=== PATIENT | male | born 1945 | race Caucasian/White ===

== ENCOUNTER 2017-11-03 18:57 | Emergency (ER) | payer BC, OTHER ==
[~2017-11-03] VITALS: Ht 180.3 cm; Wt 89.8 kg
[2017-11-03 19:07] VITALS: BP_SYST 132
[2017-11-03 19:39] LABS: BILIRUBIN,URINE NEGATIVE (NEGATIVE); BLOOD, URINE 3+ (NEGATIVE); CLARITY/URINE HAZY (CLEAR); COLOR,URINE YELLOW (YELLOW); GLUCOSE,URINE NEGATIVE (NEGATIVE); KETONES,URINE NEGATIVE (NEGATIVE); LEUKOCYTE ESTERASE ,URINE TRACE (NEGATIVE); NITRITE, URINE NEGATIVE (NEGATIVE); PROTEIN URINE 1+ (NEGATIVE); UROBILINOGEN,URINE 0.2 (0.2-1.0)
[2017-11-03 19:53] LABS: BACTERIA,URINE FEW /HPF (None Seen); MUCUS,URINE 1+ /LPF (None Seen); RBC,URINE >100 /HPF (0-3)
--- NOTE | 2017-11-03 20:00 | NUR ---
Patient to ER bed to gown for evaluation. Side rails up.
--- NOTE | 2017-11-03 20:20 | NUR ---
Patient to ER via triage for evaluation for burning when urine enters catheter tube. Patient denies pain or blood in urine. Per patient, mccabe was placed 2 days ago. Patient is awake, alert and oriented in no acute distress, vital signs stable, respirations even and unlabored, skin warm and dry to touch. Awaiting evaluation by ER MD, will continue to observe and assess.
[2017-11-03] MEDS ORDERED: NACL 0.9% 1,000 ML IV ONE (21:30)
[2017-11-03] MEDS ORDERED: cefTRIAXone 1 GM IVPB PREMIX 50 ML IV ONE (21:30)
--- NOTE | 2017-11-03 21:35 | NUR ---
Dr Rose at bedside to evaluate patient.
--- NOTE | 2017-11-03 22:00 | NUR ---
Urinary Catheter dc'd per Dr Rose's order, patient tolerated procedure well.
[2017-11-03 22:22] LABS: BASOPHILS % (AUTO) 0.3 % (0.0-2.0); EOSINOPHILS # (AUTO) 0.2 K/uL (0.0-0.4); EOSINOPHILS % (AUTO) 3.3 % (0.0-4.0); HEMATOCRIT 39.2 % (36-54); HEMOGLOBIN 12.5 g/dL (14.0-18.0); LYMPHOCYTES # (AUTO) 1.6 K/uL (1.0-5.5); LYMPHOCYTES % (AUTO) 21.9 % (20.5-51.5); MEAN CORPUSCULAR HEMOGLOBIN 29 pg (27-31); MEAN CORPUSCULAR HGB CONC 32 % (32-36); MEAN CORPUSCULAR VOLUME 90 fL (79.0-98.0); MONOCYTES # (AUTO) 0.8 K/uL (0.0-1.0); MONOCYTES % (AUTO) 11.5 % (1.7-9.3); NEUTROPHILS # (AUTO) 4.6 K/uL (1.8-7.7); PLATELET COUNT (AUTO) 223 K/uL (130-430); RED BLOOD CELL COUNT(AUTO) 4.33 MIL/uL (4.2-6.2); RED CELL DISTRIBUTION WIDTH 13.3 % (9.0-15.0); WHITE BLOOD COUNT (AUTO) 7.2 K/uL (4.8-10.8)
[2017-11-03 22:26] LABS: CALCIUM 9.4 mg/dL (8.4-11.0); CREATININE 1.29 mg/dL (0.55-1.30); POTASSIUM 3.5 mmol/L (3.5-5.1)
[2017-11-03 22:31] LABS: ALBUMIN 3.7 g/dL (3.4-4.8); TOTAL BILIRUBIN 0.4 mg/dL (0.0-1.0)
--- NOTE | 2017-11-03 23:00 | NUR ---
Patient resting quietly in no acute distress. Family remains at bedside.
--- NOTE | 2017-11-04 | NUR ---
Patient resting quietly in no acute distress, respirations even and unlabored, skin warm and dry to touch. IV fluids complete. Patient has been able to void a total of 400 ml of urine, Dr Rose notified.
[2017-11-04 00:10] VITALS: BP_SYST 128
--- NOTE | 2017-11-04 00:10 | NUR ---
Patient given written and verbal discharge instructions and verbalizes understanding. ER MD discussed with patient the results and treatment provided. Patient in stable condition. ID arm band removed. IV catheter removed intact and dressing applied, no active bleeding. Rx of Cipro given. Patient educated on pain management and to follow up with PMD. Pain Scale 0. Opportunity for questions provided and answered. Medication side effect fact sheet provided. Patient left ER in no acute distress, ambulating without difficulty with slow, steady gait with at his side. No adverse reaction noted to medication. Aftercare given to patient by Dr Rose, questions answered by Dr Rose.
== END 2017-11-04 00:10 | disposition home or self-care (01) ==
LOC: SED 18:57
DX: N39.0 Urinary tract infection, site not specified (principal); R33.9 Retention of urine, unspecified; R03.0 Elevated blood-pressure reading, without diagnosis of hypertension
CPT/HCPCS: 36415; 80053; 81000; 85025; 87086; 96365; 99284; J0696; J7030